=== PATIENT | female | born 1985 | race Caucasian/White ===

== ENCOUNTER 2021-04-19 06:00 | Inpatient (IN) | payer BC ==
[~2021-04-19 06:00] MED LIST: Bupivacaine 0.25% 10 ML SDV ONE
[2021-04-19] MEDS ORDERED: Calcium Carbonate 500 MG Tab.Chew PO PRN (06:09)
[2021-04-19] MEDS ORDERED: Nalbuphine 10 MG/1 ML Vial IVPUSH PRN (06:09)
[2021-04-19] MEDS ORDERED: Acetaminophen 325 MG Tab PO PRN (06:09)
[2021-04-19] MEDS ORDERED: Lidocaine 1% 50 ML MDV INJECT PRN (06:09)
[2021-04-19] MEDS ORDERED: Ondansetron 4 MG/2 ML SDV IVPUSH PRN (06:09)
[2021-04-19] MEDS ORDERED: Oxytocin/Lactated Ringers 10 UNIT/1,000 ML BAG IV SCH ×2 (06:15→10:00)
[2021-04-19] MEDS: Lactated Ringers 1,000 ML IV SCH ×3 (06:40→08:05)
[2021-04-19] MEDS ORDERED: fentaNYL 100 MCG/2 ML SDV ONE (07:11)
[2021-04-19] MEDS ORDERED: fentaNYL 100 MCG/2 ML SDV EPIDUR PRN (07:23)
[2021-04-19] MEDS ORDERED: diphenhydrAMINE 50 MG/ML SDV IVPUSH PRN (07:23)
[2021-04-19] MEDS ORDERED: ePHEDrine 50 MG/ML SDV IVPUSH PRN (07:23)
[2021-04-19] MEDS ORDERED: Bupivacaine/fentaNYL/NS 100 ML Bag EPIDUR PRN (07:23)
[2021-04-19] MEDS ORDERED: Misoprostol 200 MCG Tab PO ONE ×2 (12:00)
[2021-04-19] MEDS ORDERED: Misoprostol 200 MCG Tab PO SCH (12:00)
[2021-04-19] MEDS ORDERED: Witch Hazel Medicated Pads 40/Jar TOP PRN (12:21)
[2021-04-19] MEDS ORDERED: Benzocaine/Menthol 20%-0.5% Spray 78 GM Cannister TOP PRN (12:21)
[2021-04-19] MEDS ORDERED: Misoprostol 200 MCG Tab ONE (12:33)
[2021-04-19] MEDS ORDERED: cefOXitin 1 GM in Premix Bag 1 BAG IV ONE (15:23)
[2021-04-19] MEDS: Ibuprofen 600 MG Tab PO SCH (16:35)
[2021-04-20] MEDS: Ibuprofen 600 MG Tab PO SCH ×3 (00:29→19:43)
[2021-04-20] MEDS: busPIRone 5 MG Tab PO SCH (12:08)
[2021-04-20] MEDS: Sertraline 50 MG Tab PO SCH (12:08)
[2021-04-21] MEDS: Ibuprofen 600 MG Tab PO SCH ×2 (00:46→08:40)
[2021-04-21] MEDS: Sertraline 50 MG Tab PO SCH (08:42)
[2021-04-21] MEDS: busPIRone 5 MG Tab PO SCH (08:43)
== END 2021-04-21 12:45 | disposition home or self-care (01) | DRG 560 ==
LOC: UNDOADMOB 06:00 → JD.OB 06:00 → INTOOBSV 11:24 → OBSVTOIN 11:24 → JD.OB 11:24 → UNDODISIN 04-21 12:45
PROVIDERS: ADMIT Obstetrics & Gynecology; ATTEND Obstetrics & Gynecology
PROC: 10E0XZZ Delivery of Products of Conception, External Approach (ICD-10-PCS; principal; 2021-04-19)
PROC: 10907ZC Drainage of Amniotic Fluid, Therapeutic from Products of Conception, Via Natural or Artificial Opening (ICD-10-PCS; 2021-04-19)
PROC: 3E0R3BZ Introduction of Anesthetic Agent into Spinal Canal, Percutaneous Approach (ICD-10-PCS; 2021-04-19)
PROC: 00HU33Z Insertion of Infusion Device into Spinal Canal, Percutaneous Approach (ICD-10-PCS; 2021-04-19)
DX: O99.344 Other mental disorders complicating childbirth (principal); F41.8 Other specified anxiety disorders; O99.52 Diseases of the respiratory system complicating childbirth; Z3A.40 40 weeks gestation of pregnancy; Z37.0 Single live birth; Z86.16 Personal history of COVID-19; J45.909 Unspecified asthma, uncomplicated
CPT/HCPCS: 01967; 36415; 51701; 51702; 59025; 59409; 85025; 86592; 86803; 86850; 86900; 86901; A9270-GY; J0694; J2590; J3010; J3490; J7120